=== PATIENT | male | born 1985 | race Caucasian/White ===

== ENCOUNTER 2016-12-24 19:29 | Emergency (ER) | payer OTHER ==
--- NOTE | 2016-12-24 20:16 | DIAGNOSTIC IMAGING REPORT ---
PROCEDURE: CT SINUS/FACIAL BONES W/O CONT CLINICAL INDICATION: TRAUMA/INJURY TECHNIQUE: Noncontrast axial images with coronal reformations. COMPARISON: None. FINDINGS: Frontal scalp contusion with surface punctate foreign body. Nasal bone, zygomatic arches, mandible and pterygoid plates are intact. Mild bilateral maxillary, sphenoid and moderate ethmoid sinus disease. The globes and orbits are unremarkable. Mastoids are clear. Normal TMJs. IMPRESSION: 1. No fracture 2. Frontal scalp contusion 3. Mild to moderate disease 4. Results discussed with Dr. Roach All CT scans at this facility use dose modulation, iterative reconstruction, and/or weight-based dosing when appropriate to reduce radiation dose to as low as reasonably achievable.
--- NOTE | 2016-12-24 21:48 | ED ORDER SUMMARY ---
..... Patient: LUIS RICHARDS OrderSheet [facility] VisitID: [id number] [place] [address] 31y, M Registration Date/Time: 12/24/2016 ORDER SHEET Weight: 77.1 kg (stated) Allergies: None GENERAL ORDERS: CT Sinus/Facial Bones wo Cont Urgent (19:47 12/24/2016 Radu WAGNER) (Ack 19:51 IJurca ER Tech1) (20:06 Cornell) - (CLEAN AND BACITRACIN TO FACE) (21:29 12/24/2016 Radu WAGNER) (21:35 HSoule) MEDICATION ORDERS: Keflex PO 500 mg (NOW) (21:29 12/24/2016 Radu WAGNER) (Ack 21:35 HSoule) (21:38 HSoule) Acetaminophen PO 650 mg (NOW) (21:12/24/2016 Radu WAGNER) (Ack 21:35 HSoule) (21:38 HSoule) IV FLUIDS: ORDER SHEET NOTES: [Electronically signed by Lauryn Dotson R.N. (22:12/24/2016)] [Electronically signed by Tacho Roach MD (22:17 12/26/2016)] [Electronically locked/signed by Lauryn Dotson R.N. (22:12/24/2016)]
--- NOTE | 2016-12-24 21:48 | ED NURSING NOTES ---
Clinical Report - Nurses [facility] [address] [place] [address] 12/24/2016 19:32 Patient: LUIS RICHARDS TRIAGE Triage time 19:34. Acuity: LEVEL 3. Chief Complaint: INJURY TO FOREHEAD, FACE, NOSE and MOUTH. Alert. No acute distress. JAVIER COMA SCORE: Javier Coma Scale: 15- eyes open spontaneously (4); best verbal response- oriented x 4 (5); best motor response- obeys commands (6). --19:42 Lauryn Dotson R.N. 19:34 12/24/16. BP: 154/84. HR: 114. RR: 20. O2 saturation: 100%. Temp: 98.2 F. Pain level now: 810. --19:42 Lauryn Dotson R.N. 19:34 12/24/16. BP: 154/84. HR: 114. RR: 20. O2 saturation: 100%. Temp: 98.2 F. Pain level now: 04/13. --19:42 Lauryn Dotson R.N. Weight: 77.1 kg stated. Height/Length: 73 inches Per Patient. BMI: 22.4. --19:38 Lauryn Dotson R.N. Medications Methadone 120mg day . --19:39 Lauryn Dotson R.N. Vitimins. --19:39 Lauryn Dotson R.N. Allergies None. --19:39 Lauryn Dotson R.N. Medication/allergy information source: the patient. --19:42 Lauryn Dotson R.N. History Arrived by private vehicle. Historian: patient and family. Accompanied by family. No primary care physician. This occurred just prior to arrival. Occurred at home. Mechanism of injury: fell while walking and landed on a concrete surface; slipped. He has had a headache. No loss of consciousness. No neck pain. 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 PAST MEDICAL HX: Tetanus status: up-to-date. SOCIAL HX: Smoker- current status unknown (vapes tobacco). History of drug use: marijuana. Recently used drugs yesterday. No alcohol use. No infectious disease exposure. FALL RISK ASSESSMENT: Fall risk assessment completed. No fall risk identified. NUTRITIONAL RISK ASSESSMENT: The nutritional risk assessment revealed no deficiencies. FUNCTIONAL ASSESSMENT: Functional assessment: no impairments noted. LEARNING NEEDS ASSESSMENT: The learning needs assessment revealed no barriers. SKIN INTEGRITY ASSESSMENT: Skin integrity risk assessment completed. No skin integrity risk identified. --19:42 Lauryn Dotson R.N. PROBLEMS: no known problems. ADDITIONAL SURGERIES: no known surgeries. Interventions ID band on patient. To room. --19:42 Lauryn Dotson R.N. PHYSICAL ASSESSMENT To room via wheelchair. GENERAL / NEURO / PSYCH: Alert. Oriented X 4. Appears in pain and anxious. HEENT: Forehead: laceration. Facial swelling present. Dental tenderness. Nasal injury. Nose: laceration. Perioral area: tenderness and multiple puncture wounds. Mucous membranes are pink. RESPIRATORY: Respirations not labored. CVS: Capillary refill less than 2 seconds. BACK: No neck or back tenderness. ROM normal to the neck and back. SKIN: Skin is warm and dry. --19:45 Lauryn Dotson R.N. NURSING PROGRESS NOTES Head of bed elevated. Two patient identifiers checked. Call light placed in reach. Side rails up x 1. Bed placed in lowest position. Brakes of bed on. Patient ready for evaluation. --19:46 Lauryn Dotson R.N. Patient gowned. Head of bed elevated. --19:51 Lauryn Dotson R.N. 19:56. Patient transported to [place] by stretcher with tech. --19:56 Corry Castro, ER Tech1 21:38 12/24/2016 Keflex (Cephalexin) PO Capsules 500 mg given. Allergies verified and confirmed 5 rights. --21:38 Cynthia Argueta 21:38 12/24/2016 Acetaminophen (APAP) PO Tablets 650 mg given. Allergies verified and confirmed 5 rights. --21:38 Cynthia Argueta WOUND REPAIR: Wound repair performed by ED physician. Procedure: wound repaired with sutures (2 packs). --21:52 Jan Orellana, ER Tech1 Wound cleansed with sterile saline. Applied dressing, following the application of antibiotic ointment (bacitracin). --21:53 Jan Orellana, ER Tech1. DISPOSITION / DISCHARGE 21:54 12/24/16. BP: 135/77. HR: 87. RR: 15. O2 saturation: 98%. Temp: 98.2 F. --21:55 Jan Orellana, ER Tech1 Condition at departure: improved. No learning barriers present. Discharge instructions provided and reviewed with the patient and spouse. Reviewed medication(s) side effects, precautions, dosing and course information. Prescription(s) given to the patient. Patient and spouse verbalized understanding. Written instructions provided in Brazilian. The patient was discharged home and accompanied by spouse. He left the Emergency Department ambulatory and via private vehicle. Spouse driving. Medication list reviewed and validated. --21:59 Lauryn Dotson R.N. 19:34 12/24/16. BP: 154/84. HR: 114. RR: 20. O2 saturation: 100%. Temp: 98.2 F. Pain level now: 04/13. --21:59 Lauryn Dotson R.N. Departure time: 2154. --21:59 Lauryn Dotson R.N. Locked/Released at 12/24/2016 22:00 by Lauryn Dotson R.N.
--- NOTE | 2016-12-24 21:48 | ED CLINICAL REPORT ---
Clinical Report - Physicians/Mid Levels [facility] [address] [place] [place] [address] 12/24/2016 19:32 Patient: LUIS CONTRERAS Time Seen: 19:47. Arrived- By private vehicle. Historian- patient and family. HISTORY OF PRESENT ILLNESS Chief Complaint: INJURY TO FACE. Location of injuries- face, nose and chin. The injury occurred just prior to arrival. Fell. ( Mr. Contreras was running down exterior stone and salguero stairs at his home, he tripped and fell onto this chin and face.). Occurred at home. The patient complains of moderate pain. The patient sustained a blow to the head and was dazed. No neck pain or loss of consciousness. REVIEW OF SYSTEMS No seizure, numbness, hearing loss, loss of vision or chest pain. No weakness, difficulty breathing or fever. He sustained skin laceration. 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 ADDITIONAL SURGERIES: no known surgeries. Tetanus immunization status is up-to-date. SOCIAL HISTORY Smoker- current status unknown (Vapes). ADDITIONAL NOTES The nursing notes have been reviewed. PHYSICAL EXAM Vital Signs: 12/24/2016 21:54 BP: 135/77. HR: 87. RR: 15. O2 saturation: 98%. Temp: 98.2 F. 12/24/2016 19:34 BP: 154/84. HR: 114. RR: 20. O2 saturation: 100%. Temp: 98.2 F. Pain level now: 8/10. Appearance: Alert. Patient in mild distress. Head: Forehead: (Multiple small lacerations and abrasions). Mouth: laceration of the the area above the upper lip. No malocclusion. Eyes: Pupils equal, round and reactive to light. EOM intact. ENT: No dental injury. No dental injury. Lower gingiva: moderate tenderness and deep 3.0 cm laceration of the central aspect and labial surface (normal painless TMJ ROM in three planes). No erythema, swelling, foreign body or deformity. Nose: moderate tenderness, mild swelling and laceration involving the bridge of the nose and right nasal ala (One tringle shaped skin avlusion on the R side of the proxomal nasal bridge.). No deformity over the nose. No erythema, septal hematoma or foreign body. No jaw swelling or malocclusion. Neck: Painless ROM. Non-tender. CVS: Heart sounds normal. Respiratory: Breath sounds normal. Chest nontender. Abdomen: Soft and nontender. Back: No tenderness. ROM normal. Skin: Skin warm and dry. Extremities: Normal inspection. Pelvis stable. Extremities atraumatic. No lower extremity edema. Neuro: Oriented X 3. Mood/affect normal. Speech normal. No motor deficit. Normal gait. No sensory deficit. LABS, X-RAYS, AND EKG CT Head: (CLINICAL INDICATION: TRAUMA/INJURY TECHNIQUE: Noncontrast axial images with coronal reformations. COMPARISON: None. FINDINGS: Frontal scalp contusion with surface punctate foreign body. Nasal bone, zygomatic arches, mandible and pterygoid plates are intact. Mild bilateral maxillary, sphenoid and moderate ethmoid sinus disease. The globes and orbits are unremarkable. Mastoids are clear. Normal TMJs. IMPRESSION: 1. No fracture 2. Frontal scalp contusion 3. Mild to moderate disease 4. Results discussed with Dr. Roach Dictated by: DAYANNA CHÁVEZ MD D: [facility];12/24/162014 <Electronically signed by DAYANNA CHÁVEZ MD in OV> 12/24/162015). The study was interpreted by the radiologist and discussed with the radiologist. PROGRESS AND PROCEDURES Laceration Repair: Location: forehead. Length: 0.5 cm x 2 lacerations. Complexity: simple (local anesthesia used and sutured). Wound depth/shape- subcutaneous and linear. Local anesthesia provided using 1% lidocaine with epi. Wound explored and irrigated with normal saline. Foreign material removed. Closure of skin: interrupted 6-0 nylon (2 sutures). Laceration Repair #2: Location: nose (triangle shaped skin avulsion on the R side of he proximal nasal bridge). Length: 1.5cm. Complexity: simple (local anesthesia used and sutured). Wound depth/shape- subcutaneous. Wound is clean. Contused tissue present. Tissue loss present. Distal neuro/vascular/tendon status normal. Local anesthesia provided using 1% lidocaine with epi. Wound explored, irrigated and examined to the base in bloodless field. Debrided. No foreign material removed. Closure of skin: interrupted 6-0 nylon (4 sutures). Laceration Repair #3: Location: (R nasal ala). Length: 0.5 cm. Complexity: simple (local anesthesia used and sutured). Wound depth/shape- curved and subcutaneous. Contused tissue present. Local anesthesia provided using 1% lidocaine with epi. Wound explored and irrigated with normal saline. Wound not debrided. Subcutaneous closure: interrupted 6-0 (2 sutures). Laceration Repair #4: Location: (Upper lip). Length: 3-4 mm. Wound depth/shape- subcutaneous, irregular and flap-like. Local anesthesia provided using 1% lidocaine with epi. Wound explored, irrigated and examined to the base in bloodless field. Closure of skin: 6-0 nylon (2 sutures). Laceration Repair #5: Location: (Buccal surface of lower lip at the sulcus of the buccal and gingival mucosa). Length: 3 cm. Complexity: simple (local anesthesia used and sutured). Wound depth/shape- subcutaneous, stellate and irregular. Local anesthesia provided using 1% lidocaine with epi. Wound explored and irrigated. No foreign material removed. Closure of superficial layer: interrupted 3-0 plain gut (1 sutures). ( This was closed quite loosely. I just provided approximation of the central part of the wound .). Course of Care: Pt has a very helpful and involved family member here in the ED. Disposition: Discharged. CLINICAL IMPRESSION Minor closed head injury. No loss of consciousness. Multiple superficial lacerations to the forehead, nose and upper and lower lip. Possible concussion. INSTRUCTIONS (EVERY 2 HOUR MENTAL STATUS CHECKS FOR 24 HOURS. MAY SLEEP BETWEEN CHECKS. IMMEDIATE RECHECK IN ED IF NOT NORMALLY ALERT. FOR THE MANY CUTS. SUTURES OUT IN 5 DAYS. TOMORROW IS DAY ONE. DAILY WASH AND PAT DRY LACERATIONS. APPLY BACITRACIN OR NEOSPORIN OINTMENT LIBERALLY). Warnings: INFECTION: Watch for signs of infection (increasing heat and redness, pus-like drainage, swelling, or increased pain). Return or see your doctor if these signs occur. Prescription Medications: Cephalexin 500 mg: take 1 capsule orally every 6 hours for 5 days. No refill. Follow-up: Follow up with your doctor in five days for suture removal. Understanding of the discharge instructions verbalized by patient and family. (Electronically signed by Tacho Roach MD 12/26/2016 22:17)
--- NOTE | 2016-12-24 21:48 | ED ORDER SUMMARY ---
..... Patient: LUIS RICHARDS OrderSheet [facility] VisitID: [id number] [place] [address] 31y, M Registration Date/Time: 12/24/2016 ORDER SHEET Weight: 77.1 kg (stated) Allergies: None GENERAL ORDERS: CT Sinus/Facial Bones wo Cont Urgent (19:47 12/24/2016 Radu WAGNER) (Ack 19:51 IJurca ER Tech1) (20:06 Cornell) - (CLEAN AND BACITRACIN TO FACE) (21:29 12/24/2016 Radu WAGNER) (21:35 HSoule) MEDICATION ORDERS: Keflex PO 500 mg (NOW) (21:29 12/24/2016 Radu WAGNER) (Ack 21:35 HSoule) (21:38 HSoule) Acetaminophen PO 650 mg (NOW) (21:12/24/2016 Radu WAGNER) (Ack 21:35 HSoule) (21:38 HSoule) IV FLUIDS: ORDER SHEET NOTES: [Electronically signed by Lauryn Dotson R.N. (22:12/24/2016)] [Electronically signed by Tacho Roach MD (22:17 12/26/2016)] [Electronically locked/signed by Lauryn Dotson R.N. (22:12/24/2016)]
--- NOTE | 2016-12-24 21:48 | ED NURSING NOTES ---
Clinical Report - Nurses [facility] [address] [place] [address] 12/24/2016 19:32 Patient: LUIS RICHARDS TRIAGE Triage time 19:34. Acuity: LEVEL 3. Chief Complaint: INJURY TO FOREHEAD, FACE, NOSE and MOUTH. Alert. No acute distress. JAVIER COMA SCORE: Javier Coma Scale: 15- eyes open spontaneously (4); best verbal response- oriented x 4 (5); best motor response- obeys commands (6). --19:42 Lauryn Dotson R.N. 19:34 12/24/16. BP: 154/84. HR: 114. RR: 20. O2 saturation: 100%. Temp: 98.2 F. Pain level now: 810. --19:42 Lauryn Dotson R.N. 19:34 12/24/16. BP: 154/84. HR: 114. RR: 20. O2 saturation: 100%. Temp: 98.2 F. Pain level now: 04/13. --19:42 Lauryn Dotson R.N. Weight: 77.1 kg stated. Height/Length: 73 inches Per Patient. BMI: 22.4. --19:38 Lauryn Dotson R.N. Medications Methadone 120mg day . --19:39 Lauryn Dotson R.N. Vitimins. --19:39 Lauryn Dotson R.N. Allergies None. --19:39 Lauryn Dotson R.N. Medication/allergy information source: the patient. --19:42 Lauryn Dotson R.N. History Arrived by private vehicle. Historian: patient and family. Accompanied by family. No primary care physician. This occurred just prior to arrival. Occurred at home. Mechanism of injury: fell while walking and landed on a concrete surface; slipped. He has had a headache. No loss of consciousness. No neck pain. 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 PAST MEDICAL HX: Tetanus status: up-to-date. SOCIAL HX: Smoker- current status unknown (vapes tobacco). History of drug use: marijuana. Recently used drugs yesterday. No alcohol use. No infectious disease exposure. FALL RISK ASSESSMENT: Fall risk assessment completed. No fall risk identified. NUTRITIONAL RISK ASSESSMENT: The nutritional risk assessment revealed no deficiencies. FUNCTIONAL ASSESSMENT: Functional assessment: no impairments noted. LEARNING NEEDS ASSESSMENT: The learning needs assessment revealed no barriers. SKIN INTEGRITY ASSESSMENT: Skin integrity risk assessment completed. No skin integrity risk identified. --19:42 Lauryn Dotson R.N. PROBLEMS: no known problems. ADDITIONAL SURGERIES: no known surgeries. Interventions ID band on patient. To room. --19:42 Lauryn Dotson R.N. PHYSICAL ASSESSMENT To room via wheelchair. GENERAL / NEURO / PSYCH: Alert. Oriented X 4. Appears in pain and anxious. HEENT: Forehead: laceration. Facial swelling present. Dental tenderness. Nasal injury. Nose: laceration. Perioral area: tenderness and multiple puncture wounds. Mucous membranes are pink. RESPIRATORY: Respirations not labored. CVS: Capillary refill less than 2 seconds. BACK: No neck or back tenderness. ROM normal to the neck and back. SKIN: Skin is warm and dry. --19:45 Lauryn Dotson R.N. NURSING PROGRESS NOTES Head of bed elevated. Two patient identifiers checked. Call light placed in reach. Side rails up x 1. Bed placed in lowest position. Brakes of bed on. Patient ready for evaluation. --19:46 Lauryn Dotson R.N. Patient gowned. Head of bed elevated. --19:51 Lauryn Dotson R.N. 19:56. Patient transported to [place] by stretcher with tech. --19:56 Corry Castro, ER Tech1 21:38 12/24/2016 Keflex (Cephalexin) PO Capsules 500 mg given. Allergies verified and confirmed 5 rights. --21:38 Cynthia Argueta 21:38 12/24/2016 Acetaminophen (APAP) PO Tablets 650 mg given. Allergies verified and confirmed 5 rights. --21:38 Cynthia Argueta WOUND REPAIR: Wound repair performed by ED physician. Procedure: wound repaired with sutures (2 packs). --21:52 Jan Orellana, ER Tech1 Wound cleansed with sterile saline. Applied dressing, following the application of antibiotic ointment (bacitracin). --21:53 Jan Orellana, ER Tech1. DISPOSITION / DISCHARGE 21:54 12/24/16. BP: 135/77. HR: 87. RR: 15. O2 saturation: 98%. Temp: 98.2 F. --21:55 Jan Orellana, ER Tech1 Condition at departure: improved. No learning barriers present. Discharge instructions provided and reviewed with the patient and spouse. Reviewed medication(s) side effects, precautions, dosing and course information. Prescription(s) given to the patient. Patient and spouse verbalized understanding. Written instructions provided in Bermudian. The patient was discharged home and accompanied by spouse. He left the Emergency Department ambulatory and via private vehicle. Spouse driving. Medication list reviewed and validated. --21:59 Lauryn Dotson R.N. 19:34 12/24/16. BP: 154/84. HR: 114. RR: 20. O2 saturation: 100%. Temp: 98.2 F. Pain level now: 04/13. --21:59 Lauryn Dotson R.N. Departure time: 2154. --21:59 Lauryn Dotson R.N. Locked/Released at 12/24/2016 22:00 by Lauryn Dotson R.N.
--- NOTE | 2016-12-26 22:17 | ED MAR SUMMARY ---
..... Medication Administration Record [facility] [address] [place] [address] Patient: LUIS RICHARDS Visit ID: [id number] 31y, M Weight: 77.1 kg Height/Length: 73 in BMI: 22.4 ALLERGIES: None Given :12/24/2016 Cynthia Argueta, Medication Administered: KEFLEX [PO] (CEPHALEXIN), Dose: 500 mg Capsules PO. Medication Ordered: Keflex PO 500 mg (NOW). Given :12/24/2016 Cynthia Argueta, Medication Administered: ACETAMINOPHEN [PO] (APAP), Dose: 650 mg Tablets PO. Medication Ordered: Acetaminophen PO 650 mg (NOW).
--- NOTE | 2016-12-26 22:17 | ED MAR SUMMARY ---
..... Medication Administration Record [facility] [address] [place] [address] Patient: LUIS RICHARDS Visit ID: [id number] 31y, M Weight: 77.1 kg Height/Length: 73 in BMI: 22.4 ALLERGIES: None Given :12/24/2016 Cynthia Argueta, Medication Administered: KEFLEX [PO] (CEPHALEXIN), Dose: 500 mg Capsules PO. Medication Ordered: Keflex PO 500 mg (NOW). Given :12/24/2016 Cynthia Argueta, Medication Administered: ACETAMINOPHEN [PO] (APAP), Dose: 650 mg Tablets PO. Medication Ordered: Acetaminophen PO 650 mg (NOW).
--- NOTE | 2016-12-26 22:17 | ED MED RECONCILIATION SUMMARY ---
Patient: LUIS RICHARDS Medication Reconciliation Report [facility] VisitID: [id number] [address] [place] [address] 31y, M Registration Date/Time: 12/24/2016 Weight: 77.1 kg Height/Length: 73 in. BMI: 22.4 ALLERGIES: None The patient's Home Medications are listed below: THE FOLLOWING MEDICATIONS NEED TO BE RECONCILED: Methadone 120mg day Vitimins The source(s) of the original Home Medication information: patient The following Medications were given to the patient in the Emergency Department: Keflex [PO] PO 500 mg, administered: 12/24/2016 9:38:00 PM Acetaminophen [PO] PO 650 mg, administered: 12/24/2016 9:38:00 PM The following Medications were prescribed to the patient: Cephalexin 500 mg: take 1 capsule orally every 6 hours for 5 days. No refill. -- Tacho Roach MD
--- NOTE | 2016-12-26 22:17 | ED DISCHARGE INSTRUCTIONS ---
Patient: LUIS RICHARDS General Instructions [facility] VisitID: [id number] [place] [address] 31y, M Registration Date/Time: 12/24/2016 Minor closed head injury. No loss of consciousness. Multiple superficial lacerations to the forehead, nose and upper and lower lip. INSTRUCTIONS (EVERY 2 HOUR MENTAL STATUS CHECKS FOR 24 HOURS. MAY SLEEP BETWEEN CHECKS. IMMEDIATE RECHECK IN ED IF NOT NORMALLY ALERT. FOR THE MANY CUTS. SUTURES OUT IN 5 DAYS. TOMORROW IS DAY ONE. DAILY WASH AND PAT DRY LACERATIONS. APPLY BACITRACIN OR NEOSPORIN OINTMENT LIBERALLY). Warnings: INFECTION: Watch for signs of infection (increasing heat and redness, pus-like drainage, swelling, or increased pain). Return or see your doctor if these signs occur. Prescription Medications: Cephalexin 500 mg: take 1 capsule orally every 6 hours for 5 days. No refill. Follow-up: Follow up with your doctor in five days for suture removal. Understanding of the discharge instructions verbalized by patient and family. ADDITIONAL INFORMATION Concussion (with Wake-Up) A concussion happens when you hit your head with enough force to shake up the brain. This may cause you to lose consciousness be "knocked out" - but not always. Depending on how hard you hit your head, it will take from a few hours up to a few days to get better. Sometimes symptoms may last a few months or longer. This is called post-concussion syndrome. At first, you may have a headache, nausea, vomiting, or dizziness. You may also have problems concentrating or remembering things. This is normal. Symptoms should get better as the hours and days go by. Symptoms that get worse could be a sign of a more serious injury. This might be a bruise or bleeding in the brain. Thats why its important to watch for the warning signs listed below. Home care Follow these tips to help care for yourself at home: During the next day (24 hours) someone must stay with you. This person should wake you every 2 hours to check for the signs below. If your face or scalp swells, apply an ice pack for 20 minutes every 1 to 2 hours. Do this until the swelling starts to go down. You can make an ice pack by putting ice cubes in a plastic bag and wrapping the bag in a towel. for 20 minutes every 1-2 hours until the swelling starts to go down. You may use acetaminophen to control pain, unless another pain medicine was prescribed. If you have chronic liver or kidney disease, talk with your doctor before using these medicines. Also talk with your doctor if you ever had a stomach ulcer or GI bleeding. For the next 24 hours: Dont drink alcohol or take sedatives or medicines that make you sleepy. Dont drive or operate machinery. Avoid doing anything strenuous. Dont lift or strain. Dont return to sports or any activity that could cause you to hit your head until all symptoms are gone and you have been cleared by your doctor. A second head injury before fully recovering from the first one can lead to serious brain injury. Follow-up care Follow up with your doctor in 1 week, or as directed. Note: A radiologist will review any X-rays or CT scans that were taken. You will be told of any new findings that may affect your care. When to seek medical care Get prompt medical attention if any of these occur: Repeated vomiting Headache or dizziness that is severe or gets worse Unusual drowsiness, or unable to wake up as usual Confusion or change in behavior or speech, or memory loss Blurred vision Convulsion (seizure) Swelling on the scalp or face that gets worse Redness, warmth, or pus from the swollen area Fluid draining from or bleeding from the nose or ears Laceration, Face (Suture Or Tape) Alaceration is a cut through the skin. This will require stitches if it is deep. Minor cuts may be treated with surgical tape. Home care The following guidelines will help you care for your laceration at home: If a bandage was applied and it becomes wet or dirty, replace it. Otherwise, leave it in place for the first 24 hours, then change it once a day or as directed. If sutures were used, clean the wound daily: After removing the bandage, wash the area with soap and water. Use a wet cotton swab to loosen and remove any blood or crust that forms. After cleaning, keep the wound clean and dry. Talk with your doctor before applying any antibiotic ointment to the wound. Reapply a fresh bandage. You may remove the bandage to shower as usual after the first 24 hours, but do not soak the area in water (no swimming) until the sutures are removed. If surgical tape was used, keep the area clean and dry. If it becomes wet, blot it dry with a towel. The doctor may prescribe an antibiotic cream or ointment to prevent infection. Do not stop taking this medication until you have have finished the prescribed course or the doctor tells you to stop. The doctor may also prescribe medications for pain. Follow the doctor's instructions for taking these medications.If you have chronic liver or kidney disease or ever had a stomach ulcer or GI bleeding, talk with your doctor before using these medicines. Follow-up care Follow up with your health care provider. Most facial cuts heal in five days with no problem. However, even with proper treatment, a wound infection sometimes occurs. Therefore, check the wound daily for the warning signs listed below. Stitches should not be left in the face for more thanfivedays; otherwise, permanent stitch chandler may form. If surgical tape closures were used, you may remove them yourself afterfivedays, if they have not fallen off by then. When to seek medical care Get prompt medical attention if any of these occur: Increasing pain in the wound Redness, swelling, or pus coming from the wound If sutures come apart or fall out before 5 days If the surgical tape closures fall off before 5 days, or the wound edges reopen Fever of 100.4F (38C) or higher, or as directed by your health care provider Bleeding not controlled by direct pressure Laceration, Lip and Mouth Alaceration is a cut through the skin. When the cut is on the outside of the lip, it may be closed with stitches, surgical tape, or sometimes skin glue. Cuts inside the mouth may be sutured or left open, depending on the size. When stitches are used in the mouth, they are usually the kind that dissolve. Home care The following guidelines will help you care for your laceration at home: Eat soft foods to reduce pain when chewing. If the cut isinsideyour mouth, clean the wound by rinsing your mouth after each meal and at bedtime with a mixture of equal parts water and hydrogen peroxide (do not swallow!). Or, you can use a cotton swab to apply hydrogen peroxide directly onto the cut. Mouth wounds can be painful when eating. You may use a local, [id number] numbing solution for pain relief. If this is not available, you may use any numbing solution for teething babies. You may apply this directly to the sores with a cotton-tip swab or with your finger. If the cut is on theoutsideof the lip and sutures were used, you may shower as usual after the first 24 hours, but do not put your head under water until the sutures are removed. After removing the bandage, wash the area with soap and water. Use a wet cotton swab to loosen and remove any blood or crust that forms. After cleaning, keep the wound clean and dry. Talk with your doctor before applying any antibiotic ointment to the wound. You may apply an adhesive bandage or leave the wound open. If surgical tape was used, keep the area clean and dry. If it becomes wet, blot it dry with a towel. Talk with your doctor before applying any antibiotic ointment to the wound. The surgical tape closures will usually fall off after about 5 days. If skin glue was used, do not scratch, rub, or pick at the adhesive film. Do not place tape directly over the film.Do not apply liquid, ointment, or creams to the wound while the film is inplace.Do not clean the wound with peroxide and do not apply ointment. Avoid activities that cause heavy sweating until the film has fallen off. Protect the wound from prolonged exposure to sunlight or tanning lamps. You may shower as usual but do not soak the wound in water (no swimming). If you were given an antibiotic to prevent infection, do not stop taking this medication until you have finished the prescribed course or the doctor tells you to stop. The doctor may prescribe medications for pain. Follow the doctor's instructions for taking these medications.If you have chronic liver or kidney disease or ever had a stomach ulcer or GI bleeding, talk with your doctor before using these medicines. Follow-up care Follow up with your health care provider. Cuts in and around the mouth heal in about five days. However, even with proper treatment, a wound infection sometimes occurs. Therefore, check the wound daily for the warning signs listed below. Stitches should not be left in the face for more thanfivedays; otherwise, permanent stitch chandler may form. Unless told otherwise, you may remove surgical tape closures yourself afterfive days, if they have not already fallen off. Ifskin glue was used, the film will fall off by itself in 510 days. When to seek medical care Get prompt medical attention if any of these occur: Increasing pain in the wound Fever of 100.4F (38C) or higher, or as directed by your health care provider Redness, swelling, or pus coming from the wound If sutures come apart or fall out or if surgical tape falls off before three days If the wound edges reopen Bleeding not controlled by direct pressure Cephalexin Monohydrate Oral tablet What is this medicine? CEPHALEXIN (sef a BEBETO in) is a cephalosporin antibiotic. It is used to treat certain kinds of bacterial infections It will not work for colds, flu, or other viral infections. How should I use this medicine? Take this medicine by mouth with a full glass of water. Follow the directions on the prescription label. This medicine can be taken with or without food. Take your medicine at regular intervals. Do not take your medicine more often than directed. Take all of your medicine as directed even if you think you are better. Do not skip doses or stop your medicine early. Talk to your cycle specialist regarding the use of this medicine in children. While this drug may be prescribed for selected conditions, precautions do apply. What side effects may I notice from receiving this medicine? Side effects that you should report to your doctor or health senior resident care director as soon as possible: allergic reactions like skin rash, itching or hives, swelling of the face, lips, or tongue breathing problems pain or trouble passing urine redness, blistering, peeling or loosening of the skin, including inside the mouth severe or watery diarrhea unusually weak or tired yellowing of the eyes, skin Side effects that usually do not require medical attention (report to your doctor or health senior resident care director if they continue or are bothersome): gas or heartburn genital or anal irritation headache joint or muscle pain nausea, vomiting What may interact with this medicine? probenecid some other antibiotics What if I miss a dose? If you miss a dose, take it as soon as you can. If it is almost time for your next dose, take only that dose. Do not take double or extra doses. There should be at least 4 to 6 hours between doses. Where should I keep my medicine? Keep out of the reach of children. Store at room temperature between 59 and 86 degrees F (15 and 30 degrees C). Throw away any unused medicine after the expiration date. What should I tell my health care provider before I take this medicine? They need to know if you have any of these conditions: kidney disease stomach or intestine problems, especially colitis an unusual or allergic reaction to cephalexin, other cephalosporins, penicillins, other antibiotics, medicines, foods, dyes or preservatives or trying to get breast-feeding What should I watch for while using this medicine? Tell your doctor or health senior resident care director if your symptoms do not begin to improve in a few days. Do not treat diarrhea with over the counter products. Contact your doctor if you have diarrhea that lasts more than 2 days or if it is severe and watery. If you have diabetes, you may get a false-positive result for sugar in your urine. Check with your doctor or health senior resident care director. You have been given the following additional information: Concussion w/ Wake-Up Laceration, Face (Suture Or Tape) Laceration, Lip/Mouth Cephalexin Monohydrate Oral tablet (Electronically signed by Tacho Roach MD 12/26/2016 22:17)
--- NOTE | 2016-12-26 22:17 | ED MED RECONCILIATION SUMMARY ---
Patient: LUIS RICHARDS Medication Reconciliation Report [facility] VisitID: [id number] [address] [place] [address] 31y, M Registration Date/Time: 12/24/2016 Weight: 77.1 kg Height/Length: 73 in. BMI: 22.4 ALLERGIES: None The patient's Home Medications are listed below: THE FOLLOWING MEDICATIONS NEED TO BE RECONCILED: Methadone 120mg day Vitimins The source(s) of the original Home Medication information: patient The following Medications were given to the patient in the Emergency Department: Keflex [PO] PO 500 mg, administered: 12/24/2016 9:38:00 PM Acetaminophen [PO] PO 650 mg, administered: 12/24/2016 9:38:00 PM The following Medications were prescribed to the patient: Cephalexin 500 mg: take 1 capsule orally every 6 hours for 5 days. No refill. -- Tacho Roach MD
== END 2016-12-24 21:55 | disposition home or self-care (01) ==
LOC: ED SRH 19:29
DX: S01.82XA Laceration with foreign body of other part of head, initial encounter (principal); S01.21XA Laceration without foreign body of nose, initial encounter; S01.511A Laceration without foreign body of lip, initial encounter; W01.198A Fall on same level from slipping, tripping and stumbling with subsequent striking against other object, initial encounter; Y93.02 Activity, running; Y92.009 Unspecified place in unspecified non-institutional (private) residence as the place of occurrence of the external cause; Y99.8 Other external cause status

== ENCOUNTER 2017-02-28 23:06 | Emergency (ER) | payer OTHER ==
--- NOTE | 2017-03-01 02:09 | ED CLINICAL REPORT ---
Clinical Report - Physicians/Mid Levels [facility] [address] [place] [address] 02/28/2017 23:06 Patient: LUIS CONTRERAS Time Seen: 01:30. Arrived- By private vehicle. Historian- patient. HISTORY OF PRESENT ILLNESS Location of injuries- head. Chief Complaint: INJURY TO HEAD. The injury occurred about 5 days ago. Occurred at home. ( Mr. Contreras was running he slipped and fell back don onto the back of his head without LOC. He notes a headache and he is concerned that he has an intracranial injury. He is on methadone maintainance and is not asking for pain medicine.). The patient complains of moderate pain. The patient sustained a blow to the head. No neck pain or loss of consciousness. Not dazed. REVIEW OF SYSTEMS No numbness, hearing loss, nausea, chest pain or depression. No weakness, loss of vision, vomiting, difficulty breathing or bladder dysfunction. No laceration. PAST HISTORY Methadone maintenance. SOCIAL HISTORY Former smoker. ADDITIONAL NOTES The nursing notes have been reviewed. PHYSICAL EXAM Vital Signs: 03/01/2017 02:10 BP: 123/71. HR: 84. RR: 14. O2 saturation: 99%. Pain level now: 11/11. 03/01/2017 01:44 BP: 114/67. HR: 68. RR: 16. O2 saturation: 100%. Pain level now: 01/11. 03/01/2017 00:40 BP: 116/68. HR: 86. O2 saturation: 99%. 02/28/2017 23:29 BP: 127/80. HR: 95. RR: 14. O2 saturation: 98%. Temp: 98.2 F. Appearance: Alert. No acute distress. Head: Right jewish: mild tenderness. No erythema, swelling, abrasion, ecchymosis or deformity. Eyes: Pupils equal, round and reactive to light. EOM intact. ENT: No dental injury. Neck: Painless ROM. Neck non-tender. Respiratory: Breath sounds normal. Chest nontender. Abdomen: Soft and nontender. Back: No tenderness. Extremities: Normal inspection. Pelvis stable. Extremities atraumatic. No lower extremity edema. Neuro: Oriented X 3. Mood/affect normal. Speech normal. No motor deficit. Normal gait. No sensory deficit. PROGRESS AND PROCEDURES Course of Care: Modest mechanism of injury, normal neuro exam, and days since injury. The chance of significant intracranial injury is very low. Disposition: Discharged. Condition: stable. CLINICAL IMPRESSION Contusion to the scalp. INSTRUCTIONS (YOUR NEUROLOGICAL EXAM IS NORMAL YOUR MECHANISM OF INJURY AND NEURO EXAM DO NOT SUGGEST BRAIN INJURY. RECHECK WITH YOUR PCP IN 10 DAYS IF NOT LOTS BETTER.). (Electronically signed by Tacho Roach MD 03/03/2017 13:53)
--- NOTE | 2017-03-01 02:09 | ED NURSING NOTES ---
Clinical Report - Nurses [facility] [address] [place] [address] 02/28/2017 23:06 Patient: LUIS RICHARDS TRIAGE Triage time 23:24 Feb 28 2017. Acuity: LEVEL 4. Chief Complaint: FALL while running, onto a hard surface. 23:29 02/28/17. Alert. No acute distress. SEPSIS SCREEN: Sepsis Screen. Negative (no infection suspected/documented). JAVIER COMA SCORE: Javier Coma Scale: 15- eyes open spontaneously (4); best verbal response- oriented x 4 (5); best motor response- obeys commands (6). --23:29 Erica Vargas 23:29 02/28/17. BP: 127/80. HR: 95. RR: 14. O2 saturation: 98%. Temp: 98.2 F. Pain level now 5/10. --23:29 Erica Vargas. Weight: 76.6 kg stated. Height/Length: 72 inches Per Patient. BMI: 22.9. --23:26 Erica Vargas. Medications Methadone 120mg day . Vitimins. --23:26 Erica Vargas. Medication/allergy information source: the patient. --23:29 Erica Vargas. Allergies None. --23:26 Erica Vargas. History Arrived by private vehicle. Historian: patient. Unaccompanied. Primary physician (Anjali). Location of injuries: neck and head. This occurred (Monday). Occurred at home. ( Pt reports running while playing with roommates dogs and slipping and hitting head. No LOC. No vomiting but does have nausea. C/o stiff neck.). He has had neck pain. No loss of consciousness. No alteration in mental status, dizziness, extremity pain, back pain or trouble walking. No limited ROM present or difficulty breathing. 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 Trauma activation: Pre-hospital notification of patient arrival was not received. PAST MEDICAL HX: Tetanus status: up-to-date. Immunizations: up-to-date. SOCIAL HX: Former smoker (quit 8 months ago). No alcohol use or drug use. FALL RISK ASSESSMENT: Fall risk assessment completed. No fall risk identified. NUTRITIONAL RISK ASSESSMENT: The nutritional risk assessment revealed no deficiencies. FUNCTIONAL ASSESSMENT: Functional assessment: no impairments noted. LEARNING NEEDS ASSESSMENT: The learning needs assessment revealed no barriers. SKIN INTEGRITY ASSESSMENT: Skin integrity risk assessment completed. No skin integrity risk identified. --23:29 Erica Vargas. PROBLEMS: Concussion [RuleOut]. Laceration [RuleOut]. Head Injury [RuleOut]. --23:26 Erica Vargas. Assessment The patient states feels the same. --23:29 Erica Vargas. Interventions ID band on patient. --23: Erica Vargas. PHYSICAL ASSESSMENT :02/28/17. Ambulatory to room. GENERAL / NEURO / PSYCH: Alert. Oriented X 4. Appears in no acute distress. Javier Coma Scale: 15- eyes open spontaneously (4); best verbal response- oriented x 4 (5); best motor response- obeys commands (6). HEENT: Pupils equal, round and reactive to light. Head: tenderness present. Right frontal area: tenderness. Left frontal area: tenderness. RESPIRATORY: Respirations not labored. Chest nontender. CVS: Pulses within normal limits. Capillary refill less than 2 seconds. GI / : Abdomen soft and nontender. EXTREMITIES: Extremities exhibit normal ROM. Neuro-vascular status intact to the extremity. SKIN: Skin intact. Skin is warm and dry. --23:30 Erica Vargas 02/28/17. GENERAL / NEURO / PSYCH: Pupillary exam: Pupils are equal, round, and reactive to light. Right pupil 2mm, round and briskly reactive to light directly. Left pupil: 2mm, round and briskly reactive to light directly. --:30 Erica Vargas. NURSING PROGRESS NOTES :02/28/17. The plan of care for this patient has been created. Reassurance given. Two patient identifiers checked. Call light placed in reach. Side rails up x 1. Bed placed in lowest position. Patient ready for evaluation- chart flagged and ED physician notified. --23: Erica Vargas 00:40 03/01/17. BP: 116/68. HR: 86. O2 saturation: 99%. --00:40 Erica Vargas 01:00 03/01/17. Care transferred and report given (LOKI Khan). --01:00 Erica Vargas 01:45 03/01/17. Patient informed about reason for wait and about plan of care. ( patient ambulated to bathroom.). --01:45 Erin Malik R.N. 01:44 03/01/17. BP: 114/67 taken on the left arm, while sitting. HR: 68. RR: 16. O2 saturation: 100%. Temp: deferred. Pain level now: 01/11. --01:45 Erin Malik R.N. 02:11. The patient is calm and resting quietly. GENERAL / NEURO / PSYCH: Alert. Oriented X 4. RESPIRATORY: No respiratory distress. --02:16 Mani Duran R.N. DISPOSITION / DISCHARGE Departure time: 02:13. Condition at departure: stable. No learning barriers present. Discharge instructions provided and reviewed with the patient. Patient verbalized understanding. Written instructions provided in Bengali. The patient was discharged home and accompanied by medical bill processor. He left the Emergency Department ambulatory and via private vehicle. 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 FALL RISK ASSESSMENT: Fall risk assessment completed. No fall risk identified. --02:15 Mani Duran R.N. 02:10 03/01/17. BP: 123/71. HR: 84. RR: 14. O2 saturation: 99% on room air. Pain level now: 11/11. --02:15 Mani Duran R.N. Locked/Released at 03/01/2017 2:16 by Mani Duran R.N.
--- NOTE | 2017-03-01 02:09 | ED CLINICAL REPORT ---
Clinical Report - Physicians/Mid Levels [facility] [address] [place] [address] 02/28/2017 23:06 Patient: LUIS CONTRERAS Time Seen: 01:30. Arrived- By private vehicle. Historian- patient. HISTORY OF PRESENT ILLNESS Location of injuries- head. Chief Complaint: INJURY TO HEAD. The injury occurred about 5 days ago. Occurred at home. ( Mr. Contreras was running he slipped and fell back don onto the back of his head without LOC. He notes a headache and he is concerned that he has an intracranial injury. He is on methadone maintainance and is not asking for pain medicine.). The patient complains of moderate pain. The patient sustained a blow to the head. No neck pain or loss of consciousness. Not dazed. REVIEW OF SYSTEMS No numbness, hearing loss, nausea, chest pain or depression. No weakness, loss of vision, vomiting, difficulty breathing or bladder dysfunction. No laceration. PAST HISTORY Methadone maintenance. SOCIAL HISTORY Former smoker. ADDITIONAL NOTES The nursing notes have been reviewed. PHYSICAL EXAM Vital Signs: 03/01/2017 02:10 BP: 123/71. HR: 84. RR: 14. O2 saturation: 99%. Pain level now: 11/11. 03/01/2017 01:44 BP: 114/67. HR: 68. RR: 16. O2 saturation: 100%. Pain level now: 01/11. 03/01/2017 00:40 BP: 116/68. HR: 86. O2 saturation: 99%. 02/28/2017 23:29 BP: 127/80. HR: 95. RR: 14. O2 saturation: 98%. Temp: 98.2 F. Appearance: Alert. No acute distress. Head: Right yazidism: mild tenderness. No erythema, swelling, abrasion, ecchymosis or deformity. Eyes: Pupils equal, round and reactive to light. EOM intact. ENT: No dental injury. Neck: Painless ROM. Neck non-tender. Respiratory: Breath sounds normal. Chest nontender. Abdomen: Soft and nontender. Back: No tenderness. Extremities: Normal inspection. Pelvis stable. Extremities atraumatic. No lower extremity edema. Neuro: Oriented X 3. Mood/affect normal. Speech normal. No motor deficit. Normal gait. No sensory deficit. PROGRESS AND PROCEDURES Course of Care: Modest mechanism of injury, normal neuro exam, and days since injury. The chance of significant intracranial injury is very low. Disposition: Discharged. Condition: stable. CLINICAL IMPRESSION Contusion to the scalp. INSTRUCTIONS (YOUR NEUROLOGICAL EXAM IS NORMAL YOUR MECHANISM OF INJURY AND NEURO EXAM DO NOT SUGGEST BRAIN INJURY. RECHECK WITH YOUR PCP IN 10 DAYS IF NOT LOTS BETTER.). (Electronically signed by Tacho Roach MD 03/03/2017 13:53)
--- NOTE | 2017-03-01 02:09 | ED NURSING NOTES ---
Clinical Report - Nurses [facility] [address] [place] [place] [address] 02/28/2017 23:06 Patient: LUIS RICHARDS TRIAGE Triage time 23:24 Feb 28 2017. Acuity: LEVEL 4. Chief Complaint: FALL while running, onto a hard surface. 23:29 02/28/17. Alert. No acute distress. SEPSIS SCREEN: Sepsis Screen. Negative (no infection suspected/documented). JAVIER COMA SCORE: Javier Coma Scale: 15- eyes open spontaneously (4); best verbal response- oriented x 4 (5); best motor response- obeys commands (6). --23:29 Erica Vargas 23:29 02/28/17. BP: 127/80. HR: 95. RR: 14. O2 saturation: 98%. Temp: 98.2 F. Pain level now 5/10. --23:29 Erica Vargas. Weight: 76.6 kg stated. Height/Length: 72 inches Per Patient. BMI: 22.9. --23:26 Erica Vargas. Medications Methadone 120mg day . Vitimins. --23:26 Erica Vargas. Medication/allergy information source: the patient. --23:29 Erica Vargas. Allergies None. --23:26 Erica Vargas. History Arrived by private vehicle. Historian: patient. Unaccompanied. Primary physician (Anjali). Location of injuries: neck and head. This occurred (Monday). Occurred at home. ( Pt reports running while playing with roommates dogs and slipping and hitting head. No LOC. No vomiting but does have nausea. C/o stiff neck.). He has had neck pain. No loss of consciousness. No alteration in mental status, dizziness, extremity pain, back pain or trouble walking. No limited ROM present or difficulty breathing. 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 Trauma activation: Pre-hospital notification of patient arrival was not received. PAST MEDICAL HX: Tetanus status: up-to-date. Immunizations: up-to-date. SOCIAL HX: Former smoker (quit 8 months ago). No alcohol use or drug use. FALL RISK ASSESSMENT: Fall risk assessment completed. No fall risk identified. NUTRITIONAL RISK ASSESSMENT: The nutritional risk assessment revealed no deficiencies. FUNCTIONAL ASSESSMENT: Functional assessment: no impairments noted. LEARNING NEEDS ASSESSMENT: The learning needs assessment revealed no barriers. SKIN INTEGRITY ASSESSMENT: Skin integrity risk assessment completed. No skin integrity risk identified. --23:29 Erica Vargas. PROBLEMS: Concussion [RuleOut]. Laceration [RuleOut]. Head Injury [RuleOut]. --23:26 Erica Vargas. Assessment The patient states feels the same. --23:29 Erica Vargas. Interventions ID band on patient. --23: Erica Vargas. PHYSICAL ASSESSMENT :02/28/17. Ambulatory to room. GENERAL / NEURO / PSYCH: Alert. Oriented X 4. Appears in no acute distress. Javier Coma Scale: 15- eyes open spontaneously (4); best verbal response- oriented x 4 (5); best motor response- obeys commands (6). HEENT: Pupils equal, round and reactive to light. Head: tenderness present. Right frontal area: tenderness. Left frontal area: tenderness. RESPIRATORY: Respirations not labored. Chest nontender. CVS: Pulses within normal limits. Capillary refill less than 2 seconds. GI / : Abdomen soft and nontender. EXTREMITIES: Extremities exhibit normal ROM. Neuro-vascular status intact to the extremity. SKIN: Skin intact. Skin is warm and dry. --23:30 Erica Vargas 02/28/17. GENERAL / NEURO / PSYCH: Pupillary exam: Pupils are equal, round, and reactive to light. Right pupil 2mm, round and briskly reactive to light directly. Left pupil: 2mm, round and briskly reactive to light directly. --:30 Erica Vargas. NURSING PROGRESS NOTES :02/28/17. The plan of care for this patient has been created. Reassurance given. Two patient identifiers checked. Call light placed in reach. Side rails up x 1. Bed placed in lowest position. Patient ready for evaluation- chart flagged and ED physician notified. --23: Erica Vargas 00:40 03/01/17. BP: 116/68. HR: 86. O2 saturation: 99%. --00:40 Erica Vargas 01:00 03/01/17. Care transferred and report given (LOKI Khan). --01:00 Erica Vargas 01:45 03/01/17. Patient informed about reason for wait and about plan of care. ( patient ambulated to bathroom.). --01:45 Erin Malik R.N. 01:44 03/01/17. BP: 114/67 taken on the left arm, while sitting. HR: 68. RR: 16. O2 saturation: 100%. Temp: deferred. Pain level now: 01/11. --01:45 Erin Malik R.N. 02:11. The patient is calm and resting quietly. GENERAL / NEURO / PSYCH: Alert. Oriented X 4. RESPIRATORY: No respiratory distress. --02:16 Mani Duran R.N. DISPOSITION / DISCHARGE Departure time: 02:13. Condition at departure: stable. No learning barriers present. Discharge instructions provided and reviewed with the patient. Patient verbalized understanding. Written instructions provided in Azeri. The patient was discharged home and accompanied by endless belt finisher. He left the Emergency Department ambulatory and via private vehicle. 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 FALL RISK ASSESSMENT: Fall risk assessment completed. No fall risk identified. --02:15 Mani Duran R.N. 02:10 03/01/17. BP: 123/71. HR: 84. RR: 14. O2 saturation: 99% on room air. Pain level now: 11/11. --02:15 Mani Duran R.N. Locked/Released at 03/01/2017 2:16 by Mani Duran R.N.
--- NOTE | 2017-03-03 13:53 | ED DISCHARGE INSTRUCTIONS ---
Patient: LUIS RICHARDS General Instructions [facility] VisitID: [id number] [address] [place] [address] 31y, M Registration Date/Time: 02/28/2017 Contusion to the scalp. INSTRUCTIONS (YOUR NEUROLOGICAL EXAM IS NORMAL YOUR MECHANISM OF INJURY AND NEURO EXAM DO NOT SUGGEST BRAIN INJURY. RECHECK WITH YOUR PCP IN 10 DAYS IF NOT LOTS BETTER.). ADDITIONAL INFORMATION Scalp Contusion [No Wake-Up] A scalp contusion is a bruise with swelling and sometimes bleeding under the skin. The swelling should start to go down within two days. Although there is no sign of a serious injury at this time, symptoms may appear later. These could be a sign of a more serious problem (bruising or bleeding in the brain). Therefore, watch for the warning signs below. Home Care: During the next 24 hours someone must stay with you to check for the signs below. It is not necessary to stay awake or be awakened during the night. If you have swelling of the face or scalp, apply an ice pack (ice cubes in a plastic bag, wrapped in a towel) for 20 minutes. Do this every 1-2 hours until the swelling starts to go down. You may use acetaminophen (Tylenol) or ibuprofen (Motrin, Advil) to control pain, unless another pain medicine was prescribed. [ NOTE : If you have chronic liver or kidney disease or ever had a stomach ulcer or GI bleeding, talk with your doctor before using these medicines.] For the next 24 hours: Do not take alcohol, sedatives or medicines that make you sleepy. Do not drive or operate machinery. Avoid strenuous activities. No lifting or straining. If you have had any symptoms of a concussion today (nausea, vomiting, dizziness, confusion, headache, memory loss or if you were knocked out), do not return to sports or any activity that could result in another head injury until all symptoms are gone and you have been cleared by your doctor. A second head injury before fully recovering from the first one can lead to serious brain injury. Follow Up with your doctor if symptoms are not improving after 24 hours, or as directed. [NOTE: Any X-rays or CT scans taken will be reviewed by a radiologist. You will be notified of any new findings that may affect your care.] Get Prompt Medical Attention if any of the following occur: Repeated vomiting Severe or worsening headache or dizziness Unusual drowsiness, or unable to awaken as usual Confusion or change in behavior or speech, memory loss, blurred vision Convulsion (seizure) Increasing scalp or face swelling Redness, warmth or pus from the swollen area Fluid drainage or bleeding from the nose or ears Fever of 100.4F(38C) or higher, or as directed by your healthcare provider You have been given the following additional information: Scalp Contusion, No Wake Up (Electronically signed by Tacho Roach MD 03/03/2017 13:53)
--- NOTE | 2017-03-03 13:53 | ED MAR SUMMARY ---
..... Medication Administration Record [facility] [address], [place] [id number] Patient: LUIS RICHARDS Visit ID: [id number] 31y, M Weight: 76.6 kg Height/Length: 72 in BMI: 22.9 ALLERGIES: None
--- NOTE | 2017-03-03 13:53 | ED MAR SUMMARY ---
..... Medication Administration Record [facility] [address] [place], [place] [id number] Patient: LUIS RICHARDS Visit ID: [id number] 31y, M Weight: 76.6 kg Height/Length: 72 in BMI: 22.9 ALLERGIES: None
--- NOTE | 2017-03-03 13:53 | ED MED RECONCILIATION SUMMARY ---
Patient: LUIS RICHARDS Medication Reconciliation Report [facility] VisitID: [id number] [address] [place] [address] 31y, M Registration Date/Time: 02/28/2017 Weight: 76.6 kg Height/Length: 72 in. BMI: 22.9 ALLERGIES: None The patient's Home Medications are listed below: THE FOLLOWING MEDICATIONS NEED TO BE RECONCILED: Methadone 120mg day Vitimins The source(s) of the original Home Medication information: patient The following Medications were given to the patient in the Emergency Department: None. The following Medications were prescribed to the patient: None.
--- NOTE | 2017-03-03 13:53 | ED MED RECONCILIATION SUMMARY ---
Patient: LUIS RICHARDS Medication Reconciliation Report [facility] VisitID: [id number] [address] [place] [address] 31y, M Registration Date/Time: 02/28/2017 Weight: 76.6 kg Height/Length: 72 in. BMI: 22.9 ALLERGIES: None The patient's Home Medications are listed below: THE FOLLOWING MEDICATIONS NEED TO BE RECONCILED: Methadone 120mg day Vitimins The source(s) of the original Home Medication information: patient The following Medications were given to the patient in the Emergency Department: None. The following Medications were prescribed to the patient: None.
== END 2017-03-01 02:13 | disposition home or self-care (01) ==
LOC: ED SRH 23:06
DX: S00.03XA Contusion of scalp, initial encounter (principal); W01.10XA Fall on same level from slipping, tripping and stumbling with subsequent striking against unspecified object, initial encounter; Y93.02 Activity, running; Y92.009 Unspecified place in unspecified non-institutional (private) residence as the place of occurrence of the external cause; Z87.891 Personal history of nicotine dependence; Z79.891 Long term (current) use of opiate analgesic